=== PATIENT | female | born 1990 | race Caucasian/White ===

== ENCOUNTER 2024-09-18 19:01 | Emergency (ER) | payer BC ==
[~2024-09-18] VITALS: Ht 167.6 cm; Wt 88.9 kg
[2024-09-18 19:10] VITALS: BP 159/91; TEMP 98.2; O2SAT 99
[2024-09-18] MEDS ORDERED: KETOROLAC TROMETHAMINE 15 MG/ML VIAL ONE (20:04)
[2024-09-18] MEDS: KETOROLAC TROMETHAMINE 15 MG/ML VIAL IM ONE (20:09)
[2024-09-18 20:28] LABS: PREGNANCY TEST URINE QUAL NEGATIVE (NEGATIVE)
== END 2024-09-18 21:41 | disposition home or self-care (01) ==
LOC: ER 19:03
DX: S01.01XA Laceration without foreign body of scalp, initial encounter (principal); R51.9 Headache, unspecified; V49.88XA Car occupant (driver) (passenger) injured in other specified transport accidents, initial encounter; Y92.413 State road as the place of occurrence of the external cause; Y92.89 Other specified places as the place of occurrence of the external cause; Y99.8 Other external cause status
CPT/HCPCS: 12001; 70450; 84703; 96372; 99285; J1885

== ENCOUNTER 2024-09-27 10:53 | Emergency (ER) | payer BC ==
[~2024-09-27] VITALS: Ht 167.6 cm; Wt 81.6 kg
[2024-09-27 11:17] VITALS: BP 136/84; TEMP 98.3
[2024-09-27 11:58] VITALS: O2SAT 99
== END 2024-09-27 11:59 | disposition home or self-care (01) ==
LOC: ER 11:25
DX: S01.01XD Laceration without foreign body of scalp, subsequent encounter (principal); Z48.02 Encounter for removal of sutures; X58.XXXD Exposure to other specified factors, subsequent encounter